=== PATIENT | female | born 1970 | race Caucasian/White ===

== ENCOUNTER 2023-09-09 08:21 | Emergency (ER) | payer OTHER, SELFPAY ==
--- NOTE | ~2023-09-09 | XR_ITS ---
EXAMINATION: XR foot LT min 3V DATE: 09/09/2023 09:02 INDICATION: Dorsal lateral left foot swelling after being run over by a forklift TECHNIQUE: Dorsoplantar, two oblique and lateral views of the left foot were obtained. COMPARISON: None. FINDINGS: Alignment is normal. No fracture. 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 Soft tissues are unremarkable. IMPRESSION: 1. No acute osseous abnormality. Reviewed, dictated and finalized at location A.
[2023-09-09 08:27] VITALS: BP 123/86; PULSE 76; RESP 13; TEMP 36.4; O2SAT 98
--- NOTE | 2023-09-09 08:52 | ED.GENADULT ---
HPI - General Adult General Chief complaint: Extremity Injury, Lower Stated complaint: foot ran over by forklift Time Seen by Provider: 09/09/23 08:39 History of Present Illness HPI narrative: This is a 53-year-old female is for was run over by a forklift. Patient has been able ambulate since injury but does have some bruising over the dorsal foot. Patient declined pain control. No other injuries. Related Data Allergies Allergy/AdvReac Type Severity Reaction Status Date / Time No Known Allergies Allergy Verified 09/09/23 08:35 Exam Narrative: APPEARANCE: No apparent distress. Head: atraumatic. EYES: EOMI, NOSE: Atraumatic NECK: Trachea midline RESPIRATORY: No increased rate of breathing CARDIOVASCULAR: RRR, ABDOMINAL: Non-distended MUSCULOSKELETAl: Focal exam of the left lower extremity revealed some bruising over the dorsum of the foot. No crepitus. Neurovascularly intact. NEURO: Alert. Moving 4/4 extremities SKIN:: Warm, dry. Normal color PSYCHIATRIC: Normal affect Course Vital Signs Vital signs: Vital Signs Temperature 97.6 F 09/09/23 08:27 Pulse Rate 76 09/09/23 08:27 Respiratory Rate 13 09/09/23 08:27 Blood Pressure 123/86 09/09/23 08:27 Pulse Oximetry 98 09/09/23 08:27 Oxygen Delivery Room Air 09/09/23 08:27 Temperature 97.6 F 09/09/23 08:27 Pulse Rate 76 09/09/23 08:27 Respiratory Rate 13 09/09/23 08:27 Blood Pressure 123/86 09/09/23 08:27 Pulse Oximetry 98 09/09/23 08:27 Oxygen Delivery Room Air 09/09/23 08:27 Medical Decision Making [facility] Narrative Medical decision making narrative: -Course: 53-year-old presenting foot pain being over by a forklift. X-rays negative for fracture. Patient declined any pain medication. Patient able ambulate. Patient discharged with a work note return precautions. Given primary care follow-up. -DDX includes but is not limited to: Soft tissue injury of the foot, bony injury to the foot -Independent interpretation of studies: X-rays negative for bony injury Vital Signs Vital Signs: Vital Signs Temperature 97.6 F 09/09/23 08:27 Pulse Rate 76 09/09/23 08:27 Respiratory Rate 13 09/09/23 08:27 Blood Pressure 123/86 09/09/23 08:27 Pulse Oximetry 98 09/09/23 08:27 Oxygen Delivery Room Air 09/09/23 08:27 Temperature 97.6 F 09/09/23 08:27 Pulse Rate 76 09/09/23 08:27 Respiratory Rate 13 09/09/23 08:27 Blood Pressure 123/86 09/09/23 08:27 Pulse Oximetry 98 09/09/23 08:27 Oxygen Delivery Room Air 09/09/23 08:27 Discharge Plan Discharge Clinical Impression: Acute foot pain Patient Disposition: Home, Self-Care Condition: Stable Instructions: Antibiotic Form, Arthralgia (ED) Additional Instructions: Please take Motrin Tylenol for pain. Please follow-up with your primary care physician. Please return if you develop severe pain inability to move foot. Prescriptions: New ibuprofen 800 mg tablet 800 mg PO TID PRN (Reason: pain) 7 Days Qty: 21 0RF acetaminophen 500 mg tablet 1,000 mg PO TID PRN (Reason: onel) 7 Days Qty: 42 0RF Follow-up/Referrals: UNKNOWN,DOCTOR [Primary Care Provider] - Stand Alone Forms: Work/School Release IP Time of Disposition: 09:36
[2023-09-09 09:45] VITALS: BP 122/75; PULSE 62; RESP 15; TEMP 36.6; O2SAT 100
== END 2023-09-09 09:45 | disposition home or self-care (01) ==
PROVIDERS: Emergency Provider Emergency Medicine
DX: M79.672 Pain in left foot (principal); V09.09XA Pedestrian injured in nontraffic accident involving other motor vehicles, initial encounter
CPT/HCPCS: 73630; 99283